=== PATIENT | female | born 1975 | race Hispanic/Latino ===

== ENCOUNTER → 2019-12-22 | Day surgery (SDC) | payer OTHER ==
--- NOTE | 2019-12-22 11:57 | RAD REPORT ---
EXAM DESCRIPTION: Ultrasound-guided vacuum assisted right breast core biopsy CLINICAL HISTORY: Breast mass N63.0 COMPARISON: BREAST/AXILLA, LIMITED dated 04/28/2017; Breast Bilat W Wo Cont dated 12/13/2019 FINDINGS: Informed consent was obtained and time-out was performed. The patient's right breast was prepped and draped in the usual sterile fashion. 1% lidocaine was used for local anesthetic purposes. Utilizing aseptic technique and ultrasound guidance, a 12 gauge vacuum assisted core biopsy device wa s used to obtain 2 core specimens through the mass of interest approximate 11-12 o'clock right breast . A post biopsy clip was then placed. All collected material was sent for cytology. Patient tolerated procedure well. IMPRESSION: Successful ultrasound guided vacuum assisted right breast mass biopsy.
== END ==
LOC: DS 10:27
PROVIDERS: ATTEND Clinical Nurse Specialist Women's Health
DX: N63.0 Unspecified lump in unspecified breast (principal)
CPT/HCPCS: 19083; 88305

== ENCOUNTER 2021-02-06 08:46 | Day surgery (SDC) | payer OTHER ==
[2021-02-06] MEDS ORDERED: Ringers Lactate 1,000 ML IV ONE (09:10)
[2021-02-06 09:33] LABS: Specific Gravity 1.015 (1.005-1.030)
[2021-02-06] MEDS ORDERED: propofoL 200 MG/20 ML VIAL IV ONE (09:38)
[2021-02-06] MEDS ORDERED: dexAMETHasone 10 MG/ML VIAL ONE (09:39)
[2021-02-06] MEDS ORDERED: LIDOCAINE 2% MPF 5 ML VIAL ONE (09:39)
[2021-02-06] MEDS ORDERED: MIDAZOLAM HCL 2 MG/2 ML INJ ONE (09:39)
[2021-02-06] MEDS ORDERED: FENTANYL CITR 100 MCG/2 ML ONE (09:39)
[2021-02-06] MEDS ORDERED: ONDANSETRON 4 MG/2 ML VIAL ONE (09:40)
[2021-02-06] MEDS: CEFAZOLIN/SWI 1gm 2 GM/20 ML SYR ONE ×2 (09:47→11:20)
[2021-02-06] MEDS ORDERED: LIDOCAINE 1% W/EPI 1:100,000 MDV 20 ML VIAL ONE (10:38)
[2021-02-06] MEDS ORDERED: SILVER NITRATE 1 APPL TOP ONE (10:38)
[2021-02-06] MEDS ORDERED: IBUPROFEN 200 MG TAB PO PRN (12:07)
[2021-02-06] MEDS ORDERED: MEPERIDINE HCL 25 MG/ML SYR IM PRN (12:07)
[2021-02-06] MEDS ORDERED: PROMETHAZINE INJ 25 MG/ML AMP IV PRN (12:07)
[2021-02-06] MEDS ORDERED: HYDROCODONE/APAP 5/325 MG TAB PO PRN (12:07)
--- NOTE | 2021-02-06 12:10 | P.BOP ---
Preoperative diagnosis: AUB-L/O/A Postoperative diagnosis: same Primary procedure: Hysteroscopy endometrial ablation novasure Estimated blood loss: min Specimen: none Findings: CL=5;W=4.7; N=917T; t=1:21, excellent global ablation Anesthesia: General Complications: None Transferred to: Recovery Room Condition: Good
[2021-02-06 12:11] VITALS: O2SAT 100
[2021-02-06 13:03] VITALS: BP 137/73; TEMP 97.1
[2021-02-06] MEDS ORDERED: HYDROCODONE/APAP 5/325 MG TAB ONE (13:27)
--- NOTE | 2021-02-06 21:02 | OP ---
Date of Procedure: 02/06/2021 Surgeon: Jen Mejia MD Preoperative Diagnosis: Menorrhagia with irregular cycles. Postoperative Diagnosis: Menorrhagia with irregular cycles. Procedure Performed: Hysteroscopy, endometrial ablation with the NovaSure. Anesthesia: General with LMA. Specimens: No specimens. Complications: No complications. Drains: No drains. Condition: Stable. Findings: Length of the uterine cavity was 5 cm. The width was 4.7 cm, power 129 [place], time for ab lation 1 minute 21 seconds. Excellent global ablation effect on hysteroscopy after the ablation was complete. Indications: The patient is a 45-year-old female with heavy bleeding. Endometrial sampling was perf ormed. No atypia or malignancy. Discussed all the options of an IUD, but this was used in the past and on the second IUD, this is not working for her, so I removed the IUD and did the sampling. So ob viously that is not the most optimal thing for the patient, so we discussed about Depot medroxyproges terone shot or oral contraceptives or an ablation. If this fails, no plan for hysterectomy. She is status post 2 sections. Procedure In Detail: After being consented, she was brought to the OR. 2 g of Ancef given. She was taken back to OR, placed in a supine fashion on the operating table. General anesthesia given, plac ed in a dorsal lithotomy position using Joe stirrups. Pelvic exam done. Uterus anteflexed. Vulva and vagina prepped with Betadine. Speculum placed to expose the cervix. Anterior lip injected with 1% lidocaine mixed with 1:100,000 epinephrine. 10 cc was used to do the cervical block at 4 and 8 o 'clock positions as well. Diagnostic SlimLine hysteroscope used to enter the cervical canal under di rect vision and traversed into the uterine cavity. Fundus 10 cm sounding length and cervical length 5 cm measured under direct vision. The scope was removed. The clots were cleared up from the cavity with the help of Janak forceps gently. NovaSure ablation device was taken and primed and inserted in the uterine cavity, deployed in the usual fashion. The cavity length was entered into the genera tor was 5 cm, cavity with the specimen was 4.7. Then cavity integrity test was done after occluding with a cervical occluder. Test was passed promptly and then ablation cycle started and it was comple nicolette in 1 minute 21 seconds without any interruption. The tool was then deployed in the usual fashion , removed. Hysteroscopy was performed rinse out the uterine cavity and there was global endometrial ablation effect that was well visualized and the scope was removed. All the instruments were removed . Toradol 30 mg IV was given. She was recovered from anesthesia and taken to PACU in stable conditi on. EBL minimal. No specimens. She will follow up with me in the office in 1 month postop. CHASE/ASHU Voice ID: [id number] Report ID: [id number]
== END 2021-02-06 13:55 | disposition home or self-care (01) ==
LOC: OR 08:46
PROVIDERS: ATTEND Obstetrics & Gynecology
PROC: 0U5B8ZZ Destruction of Endometrium, Via Natural or Artificial Opening Endoscopic (ICD-10-PCS; principal; 2021-02-06 10:30)
DX: N92.0 Excessive and frequent menstruation with regular cycle (principal); N92.6 Irregular menstruation, unspecified
CPT/HCPCS: 81025; 58563; J2704; J2250; J3010; J1100; J0690; J7120; J2405

== ENCOUNTER 2021-07-18 07:46 | Day surgery (SDC) | payer OTHER ==
[2021-07-13 15:35] LABS: Absolute Lymphocytes (CBC) 3.9 K/uL (0.7-4.9); Basophils % 0.6 % (0-1.3); Hematocrit 44.2 % (36.0-45.0); Lymphocytes % 35.3 % (15.3-44.8); MPV 7.6 fL (7.6-11.3); RBC Red Blood Cell Count 5.38 M/uL (3.86-4.86)
[2021-07-13 15:50] LABS: Potassium 4.5 mmol/L (3.5-5.1)
[2021-07-18] MEDS ORDERED: Ringers Lactate 1,000 ML IV ONE (08:14)
[2021-07-18 08:19] LABS: Specific Gravity 1.025 (1.005-1.030)
[2021-07-18] MEDS ORDERED: BUPIVACAINE 0.5% PF 10 ML VIAL ONE (08:32)
[2021-07-18] MEDS ORDERED: ACETAMINOPHEN 500 MG TAB ONE (08:36)
[2021-07-18] MEDS ORDERED: CELECOXIB 100 MG CAPSULE ONE (08:36)
[2021-07-18] MEDS: METHYLENE BLUE 0.5% 10 ML AMP ONE ×2 (08:59→09:00)
[2021-07-18] MEDS: CEFAZOLIN/NS 1gm 1 GM/50 ML BAG ONE ×2 (09:00→09:51)
[2021-07-18] MEDS ORDERED: LIDOCAINE 2% MPF 5 ML VIAL ONE (09:09)
[2021-07-18] MEDS ORDERED: MIDAZOLAM HCL 2 MG/2 ML INJ ONE (09:09)
[2021-07-18] MEDS ORDERED: GLYCOPYRROLATE 0.2 MG/ML SYR ONE ×2 (09:09→09:58)
[2021-07-18] MEDS ORDERED: dexAMETHasone 10 MG/ML VIAL ONE (09:09)
[2021-07-18] MEDS ORDERED: FENTANYL CITR 100 MCG/2 ML ONE (09:09)
[2021-07-18] MEDS ORDERED: propofoL 200 MG/20 ML VIAL IV ONE (09:09)
[2021-07-18] MEDS ORDERED: ROCURONIUM 50 MG/5 ML VIAL IV ONE (09:09)
[2021-07-18] MEDS ORDERED: KETOROLAC 30 MG/ML INJ ONE (09:10)
[2021-07-18] MEDS ORDERED: ONDANSETRON 4 MG/2 ML VIAL ONE (09:10)
[2021-07-18] MEDS ORDERED: Mastisol Adhesive Liq ONE (09:16)
[2021-07-18] MEDS ORDERED: NEOSTIGMINE 1 MG/ML -5 ML ONE (10:03)
--- NOTE | 2021-07-18 10:19 | P.BOP ---
Preoperative diagnosis: tender Pilonidal cyst Postoperative diagnosis: same Primary procedure: Excisional tender Pilonidal cyst Estimated blood loss: <10 Specimen: cyst Findings: as above Anesthesia: General Complications: None Transferred to: Recovery Room Condition: Good
[2021-07-18 10:28] VITALS: O2SAT 100
[2021-07-18 11:03] VITALS: BP 118/66; TEMP 96.3
--- NOTE | 2021-07-18 13:39 | OP ---
Date of Procedure: 07/18/2021 Surgeon: Mika Ashton MD Preoperative Diagnosis: Tender pilonidal cyst. Postoperative Diagnosis: Tender pilonidal cyst. Procedure Performed: Excisional biopsy of tender pilonidal cyst. Estimated Blood Loss: Less than 10 cc. Anesthesia: General plus local. Indications: This is the case of a female, who comes to us with a tender pilonidal cyst. At this mo ment, at least today, it does not show the erythema, although before has a questionable trying to get infected. She noticed powerhouse tender. She wants that excised. The benefits, alternatives, and risks of excision of pilonidal cyst fully explained, which include, but not limited to infection, bleeding , damage to adjacent structures, anesthesia complication, recurrence, RI, and even . She also u nderstands this may not relieve the symptoms, she might need more than one surgical intervention. Tracy luis understood and signed the consent. consent was marked previously in the holding room by me and the patient. Procedure In Detail: The patient was brought to the operating room and placed in supine position. A nesthesia was done without complication. The patient was then placed in prone position with proper p rotection. The luis-sacral area was prepped and draped in a sterile fashion. We have an X on the ar ea of maximum tenderness. There is a small opening over the area. Using an Angiocath, we proceeded to canalize that area and placed some methylene blue to help me, delineate the area of concern. Inci davin was made in a wedge fashion and that incision was then done all the way down to the coccyx, bone was not exposed. The mass and the cyst were completely excised. The area was irrigated. We obtain ed hemostasis and then after that, I proceeded to close this in a multiple layers. We used 2-0 chrom ic and deep layers and then after that, a suture mattress fashion 2-0 nylon interrupted multiple time s covered with triple antibiotics and a sterile gauze. Sponge count and instrument counts correct. We injected local anesthetic at the beginning and also obtain hemostasis. The patient tolerated the procedure well. The patient was sent to recovery in stable condition. HM/MODL Voice ID: [id number] Report ID: [id number]
--- NOTE | 2021-07-18 13:39 | DS ---
Date of Discharge: 07/18/2021 Diagnosis: Tender pilonidal cyst. Procedure: Excisional biopsy of tender pilonidal cyst. Disposition: Home. Activity: As tolerated. No heavy lifting. Plan: Follow up in my office in 1 week. Call for appointment at [phone]. Keep area dry for 24 anai rs, then may remove the dressings and take a shower including the suture line, then put triple antibi otics there and sterile gauze and follow in my office in a week. Medications: Include Bactrim DS p.o. b.i.d. and hydrocodone q.4 hours p.r.n. pain that were previous ly called from the office. PILAR/ASHU Voice ID: [id number] Report ID: [id number]
== END 2021-07-18 11:40 | disposition home or self-care (01) ==
LOC: OR 07:46
PROVIDERS: ATTEND Surgery
PROC: 0JB90ZZ Excision of Buttock Subcutaneous Tissue and Fascia, Open Approach (ICD-10-PCS; principal; 2021-07-18 09:45)
DX: L05.91 Pilonidal cyst without abscess (principal); Z20.822 Contact with and (suspected) exposure to COVID-19
CPT/HCPCS: 36415; 80048; 81025; 85025; 88304; J0690; J1100; J2250; J2405; J2704; J2710; J3010; J7120; U0002

== ENCOUNTER 2024-07-15 08:40 | Day surgery (SDC) | payer OTHER ==
[2024-07-12 11:49] LABS: Absolute Eosinophils 0.1 K/uL (0-0.5); Absolute Lymphocytes (CBC) 1.9 K/uL (0.7-4.9); Absolute Monocytes 0.5 K/uL (0.1-1.3); Basophils % 0.4 % (0-1.3); Eosinophils % 1.1 % (0-4.4); Hemoglobin 13.2 g/dL (12.0-15.0); Lymphocytes % 25.7 % (15.3-44.8); MCH 27.7 pg (27.0-35.0); MCHC 33.9 g/dL (32.0-36.0); MCV 81.8 fL (80-100); MPV 8.1 fL (7.6-11.3); Monocytes % 6.2 % (3.3-12.3); Neutrophils % 66.6 % (41.7-73.7); Platelets 256 thou/uL (152-406); RBC Red Blood Cell Count 4.77 M/uL (3.86-4.86)
[2024-07-12 12:01] LABS: Specific Gravity 1.016 (1.005-1.030); Urine Bilirubin NEGATIVE (Negative); Urine Blood Negative (Negative); Urine Clarity Clear (Clear); Urine Color Light-Yellow (Yellow); Urine Glucose NEGATIVE (Negative); Urine Ketones NEGATIVE (Negative); Urine Microscopic Reflex YN NO UMIC; Urine Nitrite NEGATIVE (Negative); Urine Protein NEGATIVE (Negative); Urine Urobilinogen Normal (Normal); Urine pH 5.5 (5.0-7.0)
[2024-07-15] MEDS ORDERED: NA CHLORIDE 0.9% 1,000 ML ONE ×2 (08:47→15:19)
[2024-07-15] MEDS: SCOPOLAMINE HYDROBROMIDE PATCH TD ONE (09:00)
[2024-07-15] MEDS: NA CHLORIDE 0.9% 2,000 ML ONE (09:00)
[2024-07-15] MEDS ORDERED: ROCURONIUM 50 MG/5 ML VIAL IV ONE ×2 (09:12→11:18)
[2024-07-15] MEDS ORDERED: GLYCOPYRROLATE 0.2 MG/ML SYR ONE (09:12)
[2024-07-15] MEDS ORDERED: LIDOCAINE 2% MPF 5 ML VIAL ONE (09:12)
[2024-07-15] MEDS ORDERED: NEOSTIGMINE 1 MG/ML -10 ML VIAL ONE (09:12)
[2024-07-15] MEDS ORDERED: ONDANSETRON 4 MG/2 ML VIAL ONE (09:12)
[2024-07-15] MEDS ORDERED: propofoL 200 MG/20 ML VIAL IV ONE (09:13)
[2024-07-15] MEDS ORDERED: FENTANYL CITR 100 MCG/2 ML ONE ×3 (09:13→12:17)
[2024-07-15] MEDS ORDERED: MIDAZOLAM HCL 2 MG/2 ML INJ ONE (09:14)
[2024-07-15] MEDS ORDERED: LIDOCAINE HCL/EPINEPHRINE 20 ML MDV ONE (09:50)
[2024-07-15] MEDS: CEFAZOLIN SODIUM 2 GM/VIAL ONE (10:40)
[2024-07-15] MEDS ORDERED: LANO/MINERAL OIL/PETRO 3.5 GM ONE (10:42)
[2024-07-15] MEDS ORDERED: dexAMETHasone 10 MG/ML VIAL ONE (10:56)
[2024-07-15] MEDS: BUPIVACAINE 0.25% PF 30 ML VIAL ONE (11:20)
[2024-07-15] MEDS: Ringers Lactate 1,000 ML IV ONE (12:30)
[2024-07-15] MEDS ORDERED: Mastisol Adhesive Liq ONE (13:02)
[2024-07-15] MEDS ORDERED: KETOROLAC 30 MG/ML INJ ONE (13:03)
[2024-07-15 13:36] VITALS: O2SAT 100
[2024-07-15] MEDS: HYDROCODONE/APAP 7.5/325 MG TAB ONE (15:12)
[2024-07-15 16:41] VITALS: BP 128/68; TEMP 97.1
--- NOTE | 2024-07-15 23:35 | OP ---
Date of Procedure: 07/15/2024 Surgeon: Jen Mejia MD Replenishment Buyer: Priscilla Benedict. Preoperative Diagnosis: Pelvic pain, status post endometrial ablation and fibroids. Postoperative Diagnoses: Pelvic pain, fibroids. No endometriosis. Significant anterior abdominal w all adhesions of the uterus and omentum. Posterior enterocele and posterior wall defect, level 1 def ect. Procedures Performed: 1.Total laparoscopic hysterectomy, bilateral salpingectomy. 2.Extensive lysis of omental adhesions to the anterior abdominal wall from the scar and yara is of adhesions of the bladder from the anterior abdominal wall. 3.Uterosacral ligament suspension, colpopexy, and modified Mirza's culdoplasty and cystoscopy. Estimated Blood Loss: 50. Urine Output: 200. Specimens: Uterus, bilateral tubes. Complications: None. Drains: None. Condition: Stable. Findings: Cystoscopy showed patent bilateral ureters with strong jets of urine. Also vaginal cuff c losure, interrupted PDS sutures, and culdoplasty with PDS sutures as well along with uterosacral susp ension. Indications: The patient is a 48-year-old lady with significant menorrhagia that was treated with en dometrial ablation after endometrial sampling was negative in 2020. Her bleeding had completely reso lved; however, her pelvic pain has been cyclic and now significantly painful that she has returned. On transvaginal ultrasound, there are 2 fibroids, 1 is a pedunculated, the other one is subserosal fi broid, 4 cm in size. No adnexal masses were noted. So we discussed about all different options of c onservative treatment with a generous antagonist in case this was endometriosis or laparoscopy with e ndometriosis excision or hysterectomy with endometriosis excision and bilateral salpingectomy. She i s already status post tubal ligation and endometrial ablation, so no fertility issues at all present at this time. After considering all her benefits and risks and understanding the complications of th e surgeries, she consented for hysterectomy. Bleeding, infection, injury to the bowel, bladder, and ureters were all discussed and consented. She was re-consented in the preoperative area and brought back to the OR. She has been in supine fas hion on the operating table and general anesthesia was given. She was placed in dorsal lithotomy pos ition using Joe stirrups. Arms tucked by the side. Positioning checked and grounded, prepped with ChloraPrep on the abdomen, vulva, vagina, and perineum with Betadine and draped in a sterile fashion . Time-out was done and 2 g of Ancef were given and procedure started. Speculum was placed to expose the cervix. Anterior lip grasped with a single-tooth tenaculum and dil ated to 16-Kyrgyz. A large cup uterine manipulator was introduced and fixed in place. This is a sig nificant posterior enterocele and a posterior wall defect. Although the cervix was high, the uterus was anteflexed. A Anderson was placed to drain the bladder and attached to gravity bag and this area was draped. 1 cm supraumbilical midline incision was made above the abdominoplasty, noted to have modified umbili mendez scar. The skin was injected with 0.25% bupivacaine. The fascia incised with a 15 blade, tagged with 0 Vicryl sutures. Peritoneum entered sharply. Mindi introduced and after adequate insufflatio n, site of entry was checked and was unremarkable. A left 5 port was first placed. Lysis of adhesions: I was unable to proceed with the surgery without taking down the adhesions. The adhesions were taken down using a 10 and a 5 camera using both ports as needed for visualization and access. Anterior abdominal wall adhesions started at the umbilicus and they were taken down. About 3 cm inferior to it, there were adhesions of the uterus to the anterior abdominal wall placing the u terus on significant elongation. The uterine adhesions were taken down for at least 4 cm and once th is was taken down, then there were adhesions of the omentum and the bladder to the lower anterior por tion of the uterus and so these adhesions were taken down the bladder from the uterus whic h was the retroperitoneal part of the bladder. Then, the adhesions of the omentum to the right round ligament, the right anterior broad ligament, and to the right tube were taken down. There were adhe sions of the omentum to the fundus of the uterus and these were taken down, then adhesions to the lef t. Proximal portion of the tubal ligation was then taken down, all these were done mostly with LigaS ure and occasionally with sharp dissection. After good visualization and freeing up of the uterus and all the omental adhesions, the 10/12 suprap ubic port was placed under direct vision. Both fascia and skin were injected with Marcaine at all po rt sites. The lysis of adhesions checked at least 25 minutes. Coming down to the hysterectomy, the left mesosalpinx was taken down, utero-ovarian ligament and roun d ligament were taken down. The anterior broad ligament was opened up taking it down to the level of the anterior vaginal wall and anterior vagina was exposed and peritoneum taken down. All the scar a nd vessels were taken down posteriorly. Peritoneum taken down the ureter laterally from t he medial leaf of the broad ligament. The attachment of the uterosacral was on significant stretch a nd that is likely from this chronic elongation of the ligament and stretching due to the scarring to the anterior abdominal wall. There was a significant enterocele between the 2 uterosacral ligaments and the uterosacral ligament was dissected and opened up to access the posterior portion of the cup a nd the enterocele. Vessels on the left side, uterine vessels were taken down and cardinal ligaments were taken down. On the opposite side, similar dissection was performed to take down the mesosalpinx, utero-ovarian liga ment, round ligament, anterior broad ligament opened up and posterior broad ligament opened up as wel l. The vessels of the broad ligament were taken down and the uterine vessels were exposed. The uter ine vessels were then taken down after skeletonizing them and them from the bladder. Then , the cardinal ligaments were taken down and circumferential colpotomy was performed with the help of a monopolar hook blade. Specimen was detached and pulled out through the vagina after thorough irri gation and suction. Assessment of the cuff was done. There was detachment of the posterior rectovag inal septum from the apex and the both uterosacral ligaments appeared to be overly stretched out. The vaginal cuff was closed with 2-0 PDS at both angles simple sutures and 3 [id number] in the middle. Uterosacral ligament suspension and modified Mirza's culdoplasty: The 0 PDS was taken and uterosacr al ligament was plicated on the left side. The cul-de-sac peritoneum was plicated taking part of the rectovaginal septum and connecting it to the opposite side and then coming through the left uterosac ral ligament. The suture was tied down. On doing the 2 PDS sutures immediately medial to the angles , I made sure that the uterosacral ligament was pulled up and reattached and here on the posterior bi te. Then, the vaginal exam was performed to look out the posterior cul-de-sac and this was nicely pu lled up. Posterior vaginal wall was straightened out with an adequate vaginal diameter and a vaginal length of at least 7 cm. Cystoscopy was performed with a 30-degree lens, normal saline, and 17-Kyrgyz sheath. Excellent jets of urine from both ureteric orifices. No evidence of any trauma or foreign body in the bladder. The bladder was then drained. I changed my gloves and from the top, I made sure that all the pedicles were visualized and were hemo static. Thorough irrigation and suction was performed. Then, I pulled out the trocars under direct visualization and the gas was desufflated. The patient was flattened out. Fascia at the supraumbili mendez region was closed with the tag sutures tied to each other, and another [id number] 0 Vicryl s uture placed to close the second layer of the fascia that was plicated with her abdominoplasty. A 3- 0 chromic was used to close the subcutaneous tissues and 0 Vicryl suture used to close the fascia at the suprapubic site and then the subcutaneous tissue brought together with a 3-0 chromic at the above incision and all incisions at the skin were closed with interrupted 4-0 Vicryl sutures. The Anderson w as removed after the cysto. Vaginal sponge was removed that was used for occlusion. All the instrum ent, needle, and sponge counts were correct. EBL less than 50. The patient tolerated the procedure well. She was recovered from anesthesia and taken to PACU in stable condition. Counts correct. CHASE/ASHU Voice ID: [id number] Report ID: [id number]
== END 2024-07-15 16:30 | disposition home or self-care (01) ==
LOC: OR 08:40
PROVIDERS: ATTEND Obstetrics & Gynecology
PROC: 0UT7FZZ Resection of Bilateral Fallopian Tubes, Via Natural or Artificial Opening With Percutaneous Endoscopic Assistance (ICD-10-PCS; 2024-07-15)
PROC: 0DNU4ZZ Release Omentum, Percutaneous Endoscopic Approach (ICD-10-PCS; 2024-07-15)
PROC: 0TNB4ZZ Release Bladder, Percutaneous Endoscopic Approach (ICD-10-PCS; 2024-07-15)
PROC: 0USG4ZZ Reposition Vagina, Percutaneous Endoscopic Approach (ICD-10-PCS; 2024-07-15)
PROC: 0UT9FZZ Resection of Uterus, Via Natural or Artificial Opening With Percutaneous Endoscopic Assistance (ICD-10-PCS; principal; 2024-07-15 10:30)
DX: R10.2 Pelvic and perineal pain (principal); D25.9 Leiomyoma of uterus, unspecified; K66.0 Peritoneal adhesions (postprocedural) (postinfection)
CPT/HCPCS: 36415; 81003; 81025; 82947; 85025; 86850; 86900; 86901; 88307; J1100; J2003; J2250; J2405; J2704; J2710; J3010; J7030; J7120